=== PATIENT | male | born 1950 | race Two or more races ===

== ENCOUNTER 2017-11-15 07:23 | Outpatient (CLI) | payer OTHER | END 2017-11-15 07:26 | disposition home or self-care (01) | LOC: SONOGRAMA 07:23 | DX: R97.20 Elevated prostate specific antigen [PSA] (principal) ==

== ENCOUNTER 2018-01-30 07:53 | Outpatient (CLI) | payer OTHER | END 2018-01-30 16:58 | disposition home or self-care (01) | LOC: NUCLEAR 07:53 | DX: I65.29 Occlusion and stenosis of unspecified carotid artery (principal); I25.89 Other forms of chronic ischemic heart disease ==

== ENCOUNTER 2018-02-22 07:15 | Inpatient (IN) | payer OTHER ==
[~2018-02-22] VITALS: Ht 170.2 cm; Wt 98.0 kg
[2018-02-22] MEDS ORDERED: METFORMIN HCL500 MG PO (09:01)
== END 2018-03-08 09:35 | disposition home or self-care (01) | DRG 708 ==
LOC: O/R 03-05 06:00 → SURH 03-05 07:00
PROVIDERS: Urology
PROC: 07TC4ZZ Resection of Pelvis Lymphatic, Percutaneous Endoscopic Approach (ICD-10-PCS; 2018-03-05)
PROC: 0VT04ZZ Resection of Prostate, Percutaneous Endoscopic Approach (ICD-10-PCS; principal; 2018-03-05 07:00)
PROC: B54DZZZ Ultrasonography of Bilateral Lower Extremity Veins (ICD-10-PCS; 2018-03-07)
DX: C61 Malignant neoplasm of prostate (principal); E11.9 Type 2 diabetes mellitus without complications

== ENCOUNTER 2020-07-13 08:30 | Outpatient (CLI) | payer OTHER ==
[~2020-07-13 08:30] MED LIST: METFORMIN HCL500 MG PO
== END 2020-07-13 08:39 | disposition home or self-care (01) ==
LOC: TOM 08:30
PROVIDERS: ATTEND Urology
DX: C61 Malignant neoplasm of prostate (principal)

== ENCOUNTER 2020-07-27 08:45 | Outpatient (CLI) | payer OTHER | END 2020-07-27 08:54 | disposition home or self-care (01) | LOC: NUCLEAR 08:45 | PROVIDERS: ATTEND Urology | DX: C61 Malignant neoplasm of prostate (principal) | CPT/HCPCS: 78803; A9503 ==